=== PATIENT | male | born 1965 | race Caucasian/White ===

== ENCOUNTER 2020-10-05 19:59 | Emergency (ER) | payer OTHER ==
[~2020-10-05] VITALS: Ht 165.1 cm; Wt 61.4 kg
[2020-10-05] MEDS ORDERED: TETanus/Pertussis (Acell)/Diphther VAC/PF (Tdap-Adult) 0.5ml syringe IMVAC ONE (20:35)
[2020-10-05 22:52] VITALS: BP 156/86
[2020-10-06 01:03] LABS: HIV ANTIBODY 1&2 RAPID NON-REACTIVE (Neg)
[2020-10-07 12:22] LABS: HBSAG SCREEN Negative (Negative); HEPATITIS C ANTIBODY <0.1 s/co ratio (0.0-0.9)
== END 2020-10-05 22:55 | disposition home or self-care (01) ==
LOC: ER 20:00
DX: S02.2XXA Fracture of nasal bones, initial encounter for closed fracture (principal); S00.12XA Contusion of left eyelid and periocular area, initial encounter; Z00.00 Encounter for general adult medical examination without abnormal findings; Y00.XXXA Assault by blunt object, initial encounter; Y93.89 Activity, other specified; Y92.89 Other specified places as the place of occurrence of the external cause; Y99.8 Other external cause status
CPT/HCPCS: 36415; 70486; 86703; 86706; 86803; 87340; 90471; 90715; 99284